=== PATIENT | male | born 1955 | race Caucasian/White ===

== ENCOUNTER 2022-12-25 22:48 | Emergency (ER) | payer OTHER ==
[~2022-12-25] VITALS: Ht 185.4 cm; Wt 114.2 kg
[2022-12-25 22:53] VITALS: RESP 16; O2SAT 100
[2022-12-25] MEDS ORDERED: cloNIDine HCL 0.1 MG TAB PO ONE (23:15)
[2022-12-25 23:16] LABS: Basophils # (auto) 0.1 10 ^3/uL (0-0.2); Basophils % (auto) 1.1 % (0.0-2.0); Eosinophils # (auto) 0.3 10 ^3/uL (0-0.8); Eosinophils % (auto) 3.2 % (0.0-7.0); Hematocrit 50.8 % (41.0-53.0); Hemoglobin 17.2 g/dL (13.5-17.5); Lymphocytes # (auto) 2.6 10 ^3/uL (0.4-5.4); Lymphocytes % (auto) 25.4 % (10.0-50.0); Mean Corpuscular Hemoglobin 31.7 pg (28.0-32.0); Mean Corpuscular Hgb Conc. 33.8 g/dL (32.0-36.0); Mean Corpuscular Volume 93.8 fL (80.0-100.0); Monocytes # (auto) 0.8 10 ^3/uL (0-1.3); Monocytes % (auto) 8.2 % (0.0-12.0); Neutrophils # (auto) 6.3 10 ^3/uL (1.6-8.6); Neutrophils % (auto) 62.1 % (37.0-80.0); Nucleated Red Blood Cells % 0.1 %; Red Blood Cells 5.42 10^6/uL (4.5-5.90); Red Cell Distribution Width 14.3 % (11.8-14.3); White Blood Cell 10.1 10^3/uL (4.4-10.8)
[2022-12-25 23:32] VITALS: PULSE 93
[2022-12-25 23:33] LABS: Alanine Aminotransferase 36 U/L (7-40); Albumin 4.6 g/dL (3.2-4.8); Alkaline Phosphatase 95 U/L (46-116); Anion Gap 7 (5-15); Aspartate Aminotransferase 29 U/L (13-40); BUN/Creatinine Ratio 14.8 (10.0-20.0); Bilirubin, Total 0.3 mg/dL (0.2-1.0); Blood Urea Nitrogen 24 mg/dL (9-23); Calcium 9.5 mg/dL (8.7-10.4); Carbon Dioxide 25 mmol/L (20-30); Chloride 107 mmol/L (98-107); Glucose 103 mg/dL (74-106); Magnesium 2.2 mg/dL (1.6-2.6); Potassium 4.5 mmol/L (3.5-5.1); Sodium 139 mmol/L (136-145)
[2022-12-25 23:34] LABS: INR 1.01 (0.9-1.15); Partial Thromboplastin Time 29.4 SEC (24.5-34.5); Prothrombin Time 10.6 sec (9.3-11.8); Total Protein 7.3 g/dL (5.7-8.2)
[2022-12-26 01:15] VITALS: BP 184/90
[2022-12-26] MEDS ORDERED: AMLO1TAB22 PO (03:03)
== END 2022-12-26 06:56 | disposition left against medical advice (07) ==
LOC: ER 22:48
DX: I10 Essential (primary) hypertension (principal); Z98.890 Other specified postprocedural states; Z86.2 Personal history of diseases of the blood and blood-forming organs and certain disorders involving the immune mechanism
CPT/HCPCS: 36415; 71045; 80053; 83735; 83880; 84484; 85025; 85610; 85730; 93005

== ENCOUNTER 2024-03-10 01:37 | Emergency (ER) | payer OTHER ==
[~2024-03-10] VITALS: Ht 185.4 cm; Wt 100.0 kg
[~2024-03-10 01:37] MED LIST: AMLO1TAB22 PO
[2024-03-10] MEDS: NITROGLYCERIN 0.4 MG SL TAB SL ONE (01:57)
--- NOTE | 2024-03-10 01:59 | ED.PDOC ---
HPI Comments HPI: Poor Historian. 68-year-old male presents to emergency department for evaluation of elevated blood pressure. Patient woke up in the middle of the night to go urinate and he felt headache. He checked his blood pressure was 145/125. He took his lisinopril pill. He stopped taking his amlodipine four days ago because of side effects. Denies any use of drugs. Patient denies any chest pain shortness of breath or any other acute symptoms except some headache. Past Medcial History: Hypertension, tobacco abuse Past Surgical History: Denies any REVIEW OF SYSTEMS: CONSTITUTIONAL: Denies acute: fever, diaphoresis, chills, generalized weakness. HEAD: Denies acute: photophobia Eyes: Denies acute: Double vision, vision loss, eye pain, eye discharge. EARS: Denies acute: tinnitus, hearing loss, ear discharge, ear pain, THROAT: Denies acute: sore throat, swelling, difficulty swallowing , pain with swallowing, change in voice. NECK: Denies acute: neck pain, neck swelling, stiff neck. HEART: Denies acute : chest pain, palpitations, LUNGS: Denies acute: SOB, wheezing, cough, hemoptysis ABDOMEN: Denies acute: abdominal pain, Nausea, Vomiting, diarrhea, melena , hematemesis, hematochezia SKIN: Denies acute: rash, redness, lesions, itchiness. EXTREMITIES: Denies acute: calf pain, numbness, tingling, weakness, denies pain in extremity. Denies acute: Low back pain. Neuro: Denies acute: focal neurological deficit, motor or sensory focal neurological deficit, tremors, seizure like activity, confusion, dizziness, change in mental status, loss of bowel or bladder function, cauda equina like symptoms. : Denies acute: dysuria, hematuria, flank pain, increase in urinary frequency. PSYCH: Denies acute: hallucination, suicidal ideation, homicidal ideation. PHYSICAL EXAM: General: no acute distress, awake and alert. Head: normocephalic, atraumatic. Neck: supple, trachea is midline, no swelling. Throat: Normal phonation. Eyes:, no erythema, no purulent discharge, no proptosis, no icterus. Heart: regular rate, regular rhythm, no significant murmur appreciated. Lungs: no apparent respiratory distress, Able to speak in full sentences. No wheezing, no rhonchi, no crackles. No stridors Clear to auscultation bilaterally. Abdomen: non tender to palpation, non distended, soft, no guarding, no rebound, + bowel sounds. Neuro: Awake, Alert, oriented to name, self, situation, follows commands GCS=15. Speech is normal. Skin: no petechia, no purpura, no cyanosis, non-pale, not jaundice. Lower extremities: --2/4 - Pitting edema no deformity, no focal swelling, no calf TTP. Makes eye contact. moves all four extremities. Face: no apparent facial droop. Ambulating in the ED independently. Chief Complaint: High Blood Pressure Time Seen by MD: 01:48 Reviewed Notes: Nurses Notes, Medications, Allergies Allergies: Coded Allergies: NO KNOWN ALLERGIES (Unverified , 12/25/22) Home Meds Active Scripts Amlodipine Besylate (Amlodipine Besylate) 5 Mg Tab, 5 MG PO DAILY, #30 TAB Prov:DAISY LORENZO JEREMIAH PAC 12/26/22 Information Source: Patient Past Medical History PAST MEDICAL HISTORY: HTN Surgical History: Denies all surgeries Family History Family History: Reviewed,noncontributory to illness Social History Smoker: Non-Smoker Alcohol: Denies ETOH Use Drugs: Denies Drug Use X-Ray, Labs, Meds, VS Vital Signs Date Time Temp Pulse Resp B/P (MAP) Pulse Ox O2 Delivery O2 Flow Rate FiO2 03/10/24 02:35 122/85 03/10/24 02:19 122/85 (97) 03/10/24 01:57 179/118 03/10/24 01:55 96 03/10/24 01:49 99.1 101 20 179/118 (138) 95 Lab Test 03/10/24 02:58 03/10/24 02:00 Range/Units Troponin I High Sensitivity Pending 14 </=54 ng/L White Blood Count 8.5 4.4-10.8 10^3/uL Red Blood Count 5.15 4.5-5.90 10^6/uL Hemoglobin 16.4 13.5-17.5 g/dL Hematocrit 47.6 41.0-53.0 % Mean Corpuscular Volume 92.5 80.0-100.0 fL Mean Corpuscular Hemoglobin 31.8 28.0-32.0 pg Mean Corpuscular Hemoglobin Concent 34.4 32.0-36.0 g/dL Red Cell Distribution Width 13.9 11.8-14.3 % Platelet Count 257 140-450 10^3/uL Mean Platelet Volume 8.3 6.9-10.8 fL Neutrophils (%) (Auto) 58.9 37.0-80.0 % Lymphocytes (%) (Auto) 27.2 10.0-50.0 % Monocytes (%) (Auto) 8.5 0.0-12.0 % Eosinophils (%) (Auto) 4.5 0.0-7.0 % Basophils (%) (Auto) 0.9 0.0-2.0 % Neutrophils # (Auto) 5.0 1.6-8.6 10 ^3/uL Lymphocytes # (Auto) 2.3 0.4-5.4 10 ^3/uL Monocytes # (Auto) 0.7 0-1.3 10 ^3/uL Eosinophils # (Auto) 0.4 0-0.8 10 ^3/uL Basophils # (Auto) 0.1 0-0.2 10 ^3/uL Nucleated Red Blood Cells 0.1 % Sodium Level 139 136-145 mmol/L Potassium Level 4.4 3.5-5.1 mmol/L Chloride Level 109 H 98-107 mmol/L Carbon Dioxide Level 20 20-31 mmol/L Anion Gap 10 5-15 Blood Urea Nitrogen 30 H 9-23 mg/dL Creatinine 1.69 H 0.700-1.30 mg/dL Glomerular Filtration Rate Calc 44 >90 mL/min BUN/Creatinine Ratio 17.8 10.0-20.0 Serum Glucose 119 H 74-106 mg/dL Lactic Acid Level 1.4 0.4-2.0 mmol/L Calcium Level 9.9 8.7-10.4 mg/dL Total Bilirubin 0.2 0.2-1.0 mg/dL Aspartate Amino Transferase (AST) 36 13-40 U/L Alanine Aminotransferase (ALT) 49 H 7-40 U/L Alkaline Phosphatase 88 46-116 U/L B-Type Natriuretic Peptide 25.69 0-100 pg/mL Total Protein 7.1 5.7-8.2 g/dL Albumin 4.5 3.2-4.8 g/dL Current Medications Medications (Trade) Dose Ordered Sig/Steve Route Start Time Stop Time Status Last Admin Nitroglycerin (Ntrostat Sublingual) 0.4 mg ONCE ONCE SL 03/10/24 02:00 03/10/24 02:01 DC 03/10/24 01:57 Patient Education/Counseling: Diagnosis, Treatment Family Education/Counseling: Other Departure 1 Departure Time of Disposition: 03:29 Impression: Primary Impression: Hypertensive crisis Disposition: 01 HOME / SELF CARE / HOMELESS Condition: Stable Additional Instructions: Additional discharge instructions: You MUST follow-up with your primary care/family doctor in 1 to 2 days. If you are unable to see your primary care/family doctor, please return to our emergency room for re-assessment and re-evaluation in 1 to 2 days. Return to the emergency room here in our facility or to the nearest ER [facility] if your symptoms change or worsen. CONSULTATIONS: you MUST Follow-up for consultation as soon as possible with: cardiology and pulmonology in 1-2 days. Please call for appointment. You MUST call the consultants office yourself to make an appointment. You may need to arrange that through your insurance and/or your primary/family doctor. If you are unable to see the solutions architect consultant in 1 to 2 days, you must return to our emergency room (or any other ER of your choice) for re-assessment and re- evaluation. Adequate fluid hydration. Monitor blood pressure at home at least 3 times a day. Quit smoking. Salt restriction. Below is a copy of your radiological report for follow up: [place] [address] Ph: [phone] DIAGNOSTIC IMAGING Diagnostic Imaging Report : [id number] Signed PATIENT: TARIQ SLAUGHTER ACCT: [id number] UNIT: [id number] : 1955 LOC: ER ROOM / BED: / AGE / SEX: 68 / M ADM STATUS: REG ER SERVICE 0150 ORDERING PHYSICIAN: NANDA GEORGES DO PROCEDURE(s): HWOCT - HEAD WITHOUT CONTRAST REASON: HTN ORDER NUMBER(s): [id number], ACCESSION NUMBER(s): [id number] Examination: HWOCT CLINICAL INDICATION: HTN COMPARISON: None. CONTRAST USED: None. TECHNIQUE: The examination was performed obtaining 5 mm slices without contrast. CT scan was done according to ALARA (As Low as Reasonably Achievable). Multiplanar reconstructions were obtained. FINDINGS: SUPRATENTORIAL BRAIN: Cerebral Hemispheres: There is no midline shift or mass effect, intra- or extra-axial fluid collections or hemorrhage. Prominent sulcal-gyral pattern and cisternal spaces in both cerebral hemispheres suggestive of cerebral atrophy, likely age related. Atherosclerotic calcifications noted in the intracranial parts of bilateral internal carotid arteries. Periventricular White Matter/Basal Ganglia: Diffuse hypodensities noted in periventricular deep white matter of bilateral cerebral hemispheres, suggestive of chronic periventricular ischemic changes. No abnormal areas of altered attenuation within the basal ganglia. POSTERIOR FOSSA: The brainstem is normal, and the visualized cerebellar hemispheres are unremarkable. VENTRICULAR SYSTEM: The ventricular system is normal in size. There is no evidence of hydrocephalus or transependymal flow of cerebrospinal fluid. SKULL BASE AND PARASELLAR REGION: The skull base is normal, with no parasellar masses or abnormalities identified. CALVARIUM AND SCALP REGION: No abnormality is seen. PARANASAL SINUSES: Hypoplastic left frontal sinus. No significant inflammatory changes are identified in the visualized paranasal sinuses. IMPRESSION: 1. No evidence of acute large vessel territorial ischemic infarction or intraparenchymal hematoma in current study. 2. Chronic periventricular ischemic changes. 3. Bilateral cerebral atrophy, likely age related. 4. Chronic and/or ancillary findings as described above. Advised further evaluation with MRI brain without contrast, if clinically indicated. Electronically Signed 03/10/2024 03:26 Oumar Butler ATED BY: BRUNO TRINIDAD MD DICTATED DATE/TIME: 03/10/24 0326 SIGNED BY: BRUNO TRINIDAD MD SIGNED DATE/TIME: 03/10/24325 CC: Discharged With: NANDA Reis DO Mar 10, 2024 01:59
[2024-03-10 02:20] LABS: Basophils # (auto) 0.1 10 ^3/uL (0-0.2); Basophils % (auto) 0.9 % (0.0-2.0); Eosinophils # (auto) 0.4 10 ^3/uL (0-0.8); Eosinophils % (auto) 4.5 % (0.0-7.0); Hematocrit 47.6 % (41.0-53.0); Hemoglobin 16.4 g/dL (13.5-17.5); Lymphocytes # (auto) 2.3 10 ^3/uL (0.4-5.4); Lymphocytes % (auto) 27.2 % (10.0-50.0); Mean Corpuscular Hemoglobin 31.8 pg (28.0-32.0); Mean Corpuscular Hgb Conc. 34.4 g/dL (32.0-36.0); Mean Corpuscular Volume 92.5 fL (80.0-100.0); Monocytes # (auto) 0.7 10 ^3/uL (0-1.3); Monocytes % (auto) 8.5 % (0.0-12.0); Neutrophils % (auto) 58.9 % (37.0-80.0); Nucleated Red Blood Cells % 0.1 %; Platelet Count (auto) 257 10^3/uL (140-450); Red Blood Cells 5.15 10^6/uL (4.5-5.90); Red Cell Distribution Width 13.9 % (11.8-14.3); White Blood Cell 8.5 10^3/uL (4.4-10.8)
[2024-03-10 02:43] LABS: Albumin 4.5 g/dL (3.2-4.8); Alkaline Phosphatase 88 U/L (46-116); Anion Gap 10 (5-15); BUN/Creatinine Ratio 17.8 (10.0-20.0); Calcium 9.9 mg/dL (8.7-10.4); Carbon Dioxide 20 mmol/L (20-31); Potassium 4.4 mmol/L (3.5-5.1); Sodium 139 mmol/L (136-145)
[2024-03-10 02:44] LABS: Total Protein 7.1 g/dL (5.7-8.2)
[2024-03-10 02:46] LABS: Alanine Aminotransferase 49 U/L (7-40); Aspartate Aminotransferase 36 U/L (13-40); Bilirubin, Total 0.2 mg/dL (0.2-1.0); Blood Urea Nitrogen 30 mg/dL (9-23); Chloride 109 mmol/L (98-107); Glucose 119 mg/dL (74-106)
--- NOTE | 2024-03-10 02:47 | DVH ---
Examination: CXRP Clinical Indication: HTN Comparison: None. Technique: PA radiograph of the chest was obtained. Findings: Lungs are clear and well expanded, with no pulmonary infiltrate or pleural effusion. Ther e is no pneumothorax. The cardiomediastinal silhouette is within normal limits. No acute osseous abnormality is seen. Impression: No acute cardiopulmonary disease is seen. Electronically Signed 03/10/2024 02:46 Oumar Butler
--- NOTE | 2024-03-10 03:26 | DVH ---
Examination: HWOCT CLINICAL INDICATION: HTN COMPARISON: None. CONTRAST USED: None. TECHNIQUE: The examination was performed obtaining 5 mm slices without contrast. CT scan was done a ccording to ALARA (As Low as Reasonably Achievable). Multiplanar reconstructions were obtained. FINDINGS: SUPRATENTORIAL BRAIN: Cerebral Hemispheres: There is no midline shift or mass effect, intra- or extra-axial fluid collecti ons or hemorrhage. Prominent sulcal-gyral pattern and cisternal spaces in both cerebral hemispheres suggestive of cerebral atrophy, likely age related. Atherosclerotic calcifications noted in the intr acranial parts of bilateral internal carotid arteries. Periventricular White Matter/Basal Ganglia: Diffuse hypodensities noted in periventricular deep whit e matter of bilateral cerebral hemispheres, suggestive of chronic periventricular ischemic changes. No abnormal areas of altered attenuation within the basal ganglia. POSTERIOR FOSSA: The brainstem is normal, and the visualized cerebellar hemispheres are unremarkable . VENTRICULAR SYSTEM: The ventricular system is normal in size. There is no evidence of hydrocephalus or transependymal flow of cerebrospinal fluid. SKULL BASE AND PARASELLAR REGION: The skull base is normal, with no parasellar masses or abnormaliti es identified. CALVARIUM AND SCALP REGION: No abnormality is seen. PARANASAL SINUSES: Hypoplastic left frontal sinus. No significant inflammatory changes are identifi ed in the visualized paranasal sinuses. IMPRESSION: 1. No evidence of acute large vessel territorial ischemic infarction or intraparenchymal hematoma in current study. 2. Chronic periventricular ischemic changes. 3. Bilateral cerebral atrophy, likely age related. 4. Chronic and/or ancillary findings as described above. Advised further evaluation with MRI brain without contrast, if clinically indicated. Electronically Signed 03/10/2024 03:26 Oumar Butler
[2024-03-10 03:33] VITALS: BP 138/84; PULSE 93; RESP 18; O2SAT 96
--- NOTE | 2024-03-11 12:46 | ECG ---
[facility] Test Date: 2024-03-10 Test Time: 01:55:32 Pat Name: TARIQ SLAUGHTER Department: ER Room: Gender: M Scrap Baler: : 1955 Requested By: NANDA GEORGES Order Number: [id number] Reading MD: Jorge Montano Measurements Intervals [place] Rate: 96 P: 74 MI: 152 QRS: 67 QRSD: 77 T: 69 QT: 340 QTc: 430 Interpretive Statements Sinus rhythm Borderline low voltage, extremity leads Baseline wander in lead(s) II,III,aVR,aVL,aVF Electronically Signed On 03-11-2024 17:14:34 PST by Jorge Montano Please click the below link to view image of tracing.
== END 2024-03-10 06:33 | disposition home or self-care (01) ==
LOC: ER 01:37
DX: I16.9 Hypertensive crisis, unspecified (principal); R06.02 Shortness of breath
CPT/HCPCS: 36415; 70450; 71045; 80053; 83605; 83880; 84484; 85025; 93005

== ENCOUNTER → 2024-06-29 | Outpatient (CLI) | payer OTHER ==
[~2024-06-29] VITALS: Ht 185.4 cm; Wt 111.1 kg
[2024-06-29] MEDS: REGADENOSON 0.4 MG/5 ML SYRG IV ONE ×2 (09:32→09:42)
--- NOTE | 2024-06-29 16:25 | DVHSR ---
APPROVED REPORT Exam: Nuclear Stress Test Indication: Chest pain BMI: 0 Medical History Medical History: COPD, HTN, Asthma Allergies: No known drug allergies Stress Test Details Stress Test: Pharmacologic stress testing performed using 0.4 mg of regadenoson per 5 mL given IV ov er 10 seconds. HR Resting HR: 81 bpmMax Heart Rate (APMHR): 152.432129 bpm Max HR Achieved: 93 bpmTarget HR (85% APMHR): 129.667944 bpm % of APMHR: 61.18 Recovery HR: 66 bpm BP Resting BP: 136/71 mmHg Recovery BP: 114/60 mmHg ECG Resting ECG: Sinus Rhythm Clinical Reason for Termination: Completed protocol Nurse Comments Recieved pt. from [facility]. A/Ox4 on RA. Connected to fish bailer, VS stable. PIV flushes well. Reviewed POC. Pt. verbalized understanding of procedure including risks and side ef fects, agrees for stress testing. Lexiscan stress test performed per protocol. [employer] tech administered Cardiolite. Pt. tolerated well . Pt. stable, no change on exam. VS returned to baseline. Transferred to [employer] via wheelchair w/ te ch. Stress ECG Conclusion lvef 56% inferior wall defect NM EXAM: Myocardial Perfusion REST/STRESS Nuclear Conclusion lvef 56% inferior wall defect
== END | disposition home or self-care (01) ==
LOC: XYW 08:15
PROVIDERS: ATTEND Student in an Organized Health Care Education/Training Program
DX: R07.9 Chest pain, unspecified (principal); R06.02 Shortness of breath; I10 Essential (primary) hypertension; J44.89 Other specified chronic obstructive pulmonary disease
CPT/HCPCS: 78452; 93017; A9500; J2785

== ENCOUNTER → 2024-08-24 | Outpatient (CLI) | payer OTHER ==
[2024-08-24 09:20] LABS: Hematocrit 45.1 % (41.0-53.0); Hemoglobin 15.2 g/dL (13.5-17.5); Mean Corpuscular Hemoglobin 30.4 pg (28.0-32.0); Mean Corpuscular Volume 90.1 fL (80.0-100.0); Nucleated Red Blood Cells % 0.1 %
[2024-08-24 09:27] LABS: Urine Protein, UAD 1+ (Negative)
[2024-08-24 11:33] LABS: Alanine Aminotransferase 26 U/L (7-40); Albumin 4.7 g/dL (3.2-4.8); Alkaline Phosphatase 76 U/L (46-116); Anion Gap 10 (5-15); BUN/Creatinine Ratio 20.2 (10.0-20.0); Bilirubin, Total 0.5 mg/dL (0.2-1.0); Calcium 9.4 mg/dL (8.7-10.4); Carbon Dioxide 23 mmol/L (20-31); Chloride 107 mmol/L (98-107); Potassium 4.0 mmol/L (3.5-5.1); Sodium 140 mmol/L (136-145); Total Protein 7.4 g/dL (5.7-8.2)
[2024-08-24 11:36] LABS: Blood Urea Nitrogen 44 mg/dL (9-23); Glucose 109 mg/dL (74-106)
[2024-08-24 11:49] LABS: Triglycerides 280 mg/dL (< 150)
[2024-08-24 11:50] LABS: Cholesterol 153 mg/dL (< 200); HDL Cholesterol 32 mg/dL (40-59)
== END | disposition home or self-care (01) ==
LOC: LAB 08:47
PROVIDERS: ATTEND Nurse Practitioner Family
DX: E11.22 Type 2 diabetes mellitus with diabetic chronic kidney disease (principal); N18.30 Chronic kidney disease, stage 3 unspecified; E78.5 Hyperlipidemia, unspecified; E55.9 Vitamin D deficiency, unspecified; Z12.5 Encounter for screening for malignant neoplasm of prostate; Z12.11 Encounter for screening for malignant neoplasm of colon
CPT/HCPCS: 36415; 80053; 80061; 81001; 82274; 83036; 84443; 85025; 87045